=== PATIENT | female | born 1940 | race Caucasian/White ===

== ENCOUNTER 2018-05-28 13:54 | Inpatient (IN) | payer OTHER ==
[~2018-05-28] VITALS: Ht 154.9 cm; Wt 106.0 kg
[~2018-05-28 13:54] MED LIST: CATAPRES-TTS 10.1 MG PO; CATAPRES-TTS 10.1 MG TD; CATAPRES0.1 MG PO; CEFTIN500 MG PO; CELEXA20 MG PO; CHLORDIAZEPOXI1 EAC1 PO; COLACE100 MG PO; DECADRON2 MG PO; DECADRON4 MG PO; ENDOCET 5-3251 EACH PO; LABETALOL HCL200 MG PO; LABETALOL IV; LASIX40 MG PO; LEXAPRO10 MG PO; LIBRAX CAPSULE1 EACH PO; MAXZIDE 37.5 M1 EACH PO; MICRO-K10 ME2 PO; NORVASC5 M1 PO; NORVASC5 MG PO; Normodyne,Trandate PO; PROTONIX40 MG PO; SPIRIVA1 INHALATI IH; SYMBICORT60 INHALAT IH; Tylenol Regular Stre PO; VICODIN,LORT1 TABLET PO; Vitamin B-12 PO; Vitamin D, Drisdol PO; Zofran IV
[2018-05-28 15:03] LABS: BASOPHIL (%) 0.5 % (0-1); BASOPHIL COUNT 0.1 K/uL (0-0.1); EOSINOPHIL (%) 1.7 % (0-5); EOSINOPHIL COUNT 0.2 K/uL (0-0.3); HEMATOCRIT 40.5 % (36.0-46.0); HEMOGLOBIN 13.1 G/DL (11.9-15.5); IMMATURE GRANULOCYTE (%) 0.9 % (0.0-0.7); LYMPHOCYTE (%) 7.5 % (15-42); LYMPHOCYTE COUNT 0.8 K/uL (1.0-2.8); MCH 30.5 PG (29.0-34.0); MCHC 32.3 G/DL (30.0-36.0); MCV 94.2 FL (83-99); MONOCYTE (%) 7.2 % (3-12); MONOCYTE COUNT 0.7 K/uL (0-0.8); NEUTROPHIL (%) 82.2 % (45-76); NEUTROPHIL COUNT 8.5 K/uL (1.8-6.4); PLATELET COUNT 243 K/uL (156-360); RBC DIS.WIDTH-CV 14.6 % (11.8-14.6); RBC DIS.WIDTH-SD 50.3 % (39-53); WHITE BLOOD COUNT 10.3 K/uL (4.1-10.2)
[2018-05-28 15:08] LABS: INTER. NORMALIZED RATIO 1.1
[2018-05-28 15:11] LABS: PTT 56.3 SEC (25-37)
[2018-05-28 15:15] LABS: ALBUMIN 4.4 g/dL (3.2-4.8)
[2018-05-28 15:16] LABS: CHLORIDE 106 mEq/L (99-109); POTASSIUM 4.8 mEq/L (3.7-5.4); SODIUM 141 mEq/L (136-147)
[2018-05-28 15:18] LABS: GLUCOSE 106 mg/dL (70-99); TOTAL PROTEIN 7.3 g/dL (6.4-8.3)
[2018-05-28 15:21] LABS: ALKALINE PHOSPHATASE 96 IU/L (3-129)
[2018-05-28 15:22] LABS: CREATININE 1.4 mg/dL (0.6-1.3)
[2018-05-28 15:23] LABS: TROP-I INTERPRETATION NEGATIVE; TROPONIN-I < 0.01 ng/mL (0.0-0.30)
[2018-05-28 15:23] LABS: AST (GOT) 13 IU/L (2-34); GFR ESTIMATE (CALCULATED) 39 mL/min/; UREA NITROGEN (BUN) 22 mg/dL (9-23)
[2018-05-28 15:25] LABS: ALT (GPT) 12 IU/L (3-49); CREATINE KINASE 42 IU/L (1-294); TOTAL CK 42 IU/L (1-294)
[2018-05-28 15:31] LABS: CK-MB 0.6 ng/mL (0.0-4.9); CKMB RELATIVE INDEX 1.4 (0.0-3.9)
[2018-05-28 16:04] LABS: APPEARANCE CLEAR ((CLEAR)); BILIRUBIN NEGATIVE; BLOOD SMALL; COLOR YELLOW ((YELLOW)); GLUCOSE (STRIP) NEGATIVE; KETONES NEGATIVE; LEUKOCYTES TRACE; NITRITE POSITIVE; PROTEIN (STRIP) NEGATIVE; SPECIFIC GRAVITY 1.014 (1.000-1.030); UROBILINOGEN 0.2 MG/DL (0.2-1.0)
[2018-05-28 16:09] LABS: BACTERIA 2+ /HPF; EPITHELIAL CELLS RARE /HPF; HYALINE CASTS 0-5 /LPF; MUCUS TRACE /LPF; RED BLOOD CELLS NONE SEEN /HPF (0-5); UCUL ADDED? YES
[2018-05-28] MEDS ORDERED: AMLODIPINE BESYL5 MG PO (17:41)
[2018-05-28] MEDS ORDERED: WELLBUTRIN SR100 MG PO (17:42)
[2018-05-28 22:58] VITALS: BP 175/91
[2018-05-29] VITALS (7 sets, daily range): BP systolic 125–177; BP diastolic 60–82
[2018-05-29 00:58] LABS: TROP-I INTERPRETATION NEGATIVE; TROPONIN-I < 0.01 ng/mL (0.0-0.30)
[2018-05-29 06:12] LABS: TROP-I INTERPRETATION NEGATIVE; TROPONIN-I 0.02 ng/mL (0.0-0.30)
[2018-05-30 00:03] VITALS: BP 149/74
[2018-05-30 03:57] VITALS: BP 139/78
[2018-05-30 05:47] LABS: BASOPHIL (%) 0.5 % (0-1); EOSINOPHIL (%) 3.2 % (0-5); EOSINOPHIL COUNT 0.2 K/uL (0-0.3); HEMATOCRIT 37.2 % (36.0-46.0); HEMOGLOBIN 11.7 G/DL (11.9-15.5); IMMATURE GRANULOCYTE (%) 0.9 % (0.0-0.7); LYMPHOCYTE (%) 14.1 % (15-42); LYMPHOCYTE COUNT 0.9 K/uL (1.0-2.8); MCH 29.9 PG (29.0-34.0); MCHC 31.5 G/DL (30.0-36.0); MCV 95.1 FL (83-99); MONOCYTE (%) 9.2 % (3-12); MONOCYTE COUNT 0.6 K/uL (0-0.8); NEUTROPHIL (%) 72.1 % (45-76); NEUTROPHIL COUNT 4.8 K/uL (1.8-6.4); PLATELET COUNT 222 K/uL (156-360); RBC DIS.WIDTH-CV 14.4 % (11.8-14.6); RBC DIS.WIDTH-SD 50.2 % (39-53); RED BLOOD COUNT 3.91 M/uL (3.80-5.20); WHITE BLOOD COUNT 6.6 K/uL (4.1-10.2)
[2018-05-30 06:10] LABS: CHLORIDE 106 MEQ/L (99-109); CREATININE 1.2 MG/DL (0.6-1.3); GFR ESTIMATE (CALCULATED) 46 mL/min/; GLUCOSE 99 mg/dL (70-99); SODIUM 140 MEQ/L (136-147); UREA NITROGEN (BUN) 19 mg/dL (9-23)
[2018-05-30 07:40] VITALS: BP 146/92
[2018-05-30 11:10] VITALS: BP 133/69
[2018-05-30 15:25] VITALS: BP 138/86
[2018-05-30 19:00] VITALS: BP 147/89
[2018-05-31 00:52] VITALS: BP 140/79
[2018-05-31 04:37] VITALS: BP 149/89
[2018-05-31 07:06] VITALS: BP 180/85
[2018-05-31] MEDS ORDERED: KEFLEX500 MG PO (11:20)
[2018-05-31 11:21] VITALS: BP 167/83
[2018-05-31 16:53] VITALS: BP 160/100
[2018-05-31 20:00] VITALS: BP 150/95
[2018-06-01] VITALS: BP 136/66
[2018-06-01 04:00] VITALS: BP 138/64
[2018-06-01 07:51] VITALS: BP 189/80
[2018-06-01] MEDS ORDERED: AMLODIPINE BESY10 MG PO (11:14)
[2018-06-01] MEDS ORDERED: CYANOCOBAL1000 MCG/2 IM (11:15)
[2018-06-01 14:20] VITALS: BP 127/66
[2018-06-01 16:13] VITALS: BP 138/66
== END 2018-06-01 16:31 | DRG 689 ==
LOC: EME 13:54 → EDBD 13:54 → EDOF 20:37 → 5SOUTH 20:37 → ENRESERV 20:50 → 5SOUTH 22:34 → ENPENDDIS 06-01 11:37 → 5SOUTH 06-01 16:31
PROVIDERS: Emergency Medicine; Hospitalist; Physician Assistant
PROC: 4A10X4Z Monitoring of Central Nervous Electrical Activity, External Approach (ICD-10-PCS; principal; 2018-05-30)
DX: N39.0 Urinary tract infection, site not specified (principal); G93.41 Metabolic encephalopathy; E66.01 Morbid (severe) obesity due to excess calories; F04 Amnestic disorder due to known physiological condition; R47.01 Aphasia; B96.20 Unspecified Escherichia coli [E. coli] as the cause of diseases classified elsewhere; I10 Essential (primary) hypertension; E53.8 Deficiency of other specified B group vitamins; H53.47 Heteronymous bilateral field defects; J44.9 Chronic obstructive pulmonary disease, unspecified; Z68.41 Body mass index [BMI] 40.0-44.9, adult; Z79.899 Other long term (current) drug therapy; Z86.011 Personal history of benign neoplasm of the brain
CPT/HCPCS: 70450; 70551; 71250; 72125; 73502; 73564; 73610; 74176; 80048; 80053; 81003; 82140; 82550; 82553; 82607; 83605; 84443; 84484; 85025; 85610; 85730; 87040; 87077; 87086; 87186; 93005; 95819; 99281; 99285; J0696; J1644; J1956; J3420; J7030; J7040